=== PATIENT | female | born 1990 | race Caucasian/White ===

== ENCOUNTER 2020-01-07 19:12 | Emergency (ER) | payer OTHER, SELFPAY ==
--- NOTE | 2020-01-07 19:19 | ED.GENADULT ---
HPI - General Adult General Chief complaint: Urogenital-Female Stated complaint: foreign object in vaginal Time Seen by Provider: 01/07/20 19:19 Source: patient Mode of arrival: ambulatory Limitations: no limitations History of Present Illness HPI narrative: 29-year-old female patient presents to the [facility] with complaints of a possible foreign body to the vaginal area. Patient states she is unsure but thinks she might have a retained tampon in the vaginal area for the past 8 days. Patient states she also had intercourse with her boyfriend at the time and thinks there might also be a condom stuck up there as well. Patient reports a little bit of discharge and some abdominal discomfort. Patient denies any obvious odor, fevers, body aches or chills. Patient states she does not have any concerns for STDs. Patient states she was trying to look into the vaginal area with near to see if there is a foreign body but states that she saw something that she thought might be a foreign body that she Taken out but states that was bleeding every time she was picking at it. Related Data Home Medications Medication Instructions Recorded Confirmed clonazepam [Klonopin] 1 mg PO DAILY 01/07/20 01/07/20 dextroamphetamine-amphetamine 20 mg PO DAILY 01/07/20 01/07/20 [Adderall XR] duloxetine [Cymbalta] 30 mg PO DAILY 01/07/20 01/07/20 Allergies Allergy/AdvReac Type Severity Reaction Status Date / Time No Known Allergies Allergy Verified 01/07/20 19:19 Review of Systems Review of Systems: Narrative: CONSTITUTIONAL: Denies fever, chills, or sweats. EYES: Denies visual changes, redness, or discharge. ENT: Denies rhinorrhea, congestion, sore throat, or otalgia. CARDIOVASCULAR: Denies chest pain, palpitations, or edema. RESPIRATORY: Denies cough or dyspnea. GASTROINTESTINAL: Denies abdominal pain, nausea, vomiting, or diarrhea. GENITOURINARY: Denies dysuria or hematuria. Possible foreign body to vaginal area x8 days SKIN: Denies rash or itching. MUSCULOSKELETAL: Denies back pain, joint pain, or myalgia. NEUROLOGIC: Denies headache, numbness, or weakness. PSYCHIATRIC: Denies anxiety or depression. [facility] Social History Social History Gender identity (if verbalized by the patient): Female Comments At the time of my signature I agree with nursing past medical history, surgical, social, and family history. There is no relevant family history pertinent to the presenting complaint. Exam Narrative: Exam Narrative: GENERAL: Well-appearing, well-nourished, and in no acute distress. HEAD: Normocephalic, atraumatic. EYES: PERRLA and EOMI. ENT: Nares clear, no rhinorrhea or epistaxis. Mucous membranes moist. NECK: Supple. No lymphadenopathy CHEST: Clear to auscultation. No respiratory distress. HEART: Regular rate and rhythm. No murmur heard. Normal peripheral pulses. ABDOMEN: Soft, nontender, nondistended, normal active bowel sounds. : Normal external female genitalia. OS is closed. No adnexal fullness or TTP. No CVA tenderness to percussion. No obvious foreign body is noted during vaginal exam however there does appear to be some kind of lesion noted to the 10:00 area of the vaginal canal. When probed with the forceps it did bleed at times but was not causing patient any pain. Erythema was noted to the os. No obvious foul odor noted during exam EXTREMITIES: Normal range of motion. No edema. SKIN: Warm, dry, no rash. NEURO: No focal deficits. Alert and oriented x3. Course Vital Signs Vital signs: Vital Signs Temperature 36.7 C 01/07/20 19:26 Pulse Rate 104 H 01/07/20 19:26 Respiratory Rate 16 01/07/20 19:26 Blood Pressure 140/92 H 01/07/20 19:26 Pulse Oximetry 100 01/07/20 19:26 Temperature 36.7 C 01/07/20 19:29 Pulse Rate 104 H 01/07/20 19:29 Respiratory Rate 16 01/07/20 19:29 Blood Pressure 140/92 H 01/07/20 19:29 Pulse Oximetry 100 01/07/20 19:
[2020-01-07 19:26] VITALS: BP 140/92; PULSE 104; RESP 16; TEMP 36.7; O2SAT 100
[2020-01-07 19:29] VITALS: BP 140/92; PULSE 104; RESP 16; TEMP 36.7; O2SAT 100
== END 2020-01-07 19:50 | disposition home or self-care (01) ==
PROVIDERS: Emergency Provider Nurse Practitioner Family
DX: N76.0 Acute vaginitis (principal); F90.9 Attention-deficit hyperactivity disorder, unspecified type; F41.9 Anxiety disorder, unspecified; F32.9 Major depressive disorder, single episode, unspecified
CPT/HCPCS: 99203; G0463